=== PATIENT | female | born 1975 | race Caucasian/White ===

== ENCOUNTER → 2017-06-24 | Outpatient (CLI) | payer OTHER ==
[~2017-06-24] MED LIST: ALPR-138 PO; ALPR.25 PO; SUCR1TAB6 PO; VENTAER INH
[2017-06-24 13:22] LABS: AUTOMATED NEUTROPHIL # 2.9 TH/MM3 (1.8-7.7); BASOPHIL # 0.1 TH/MM3 (0-0.2); BASOPHIL % 1.2 % (0.0-2.0); EOSINOPHIL # 0.1 TH/MM3 (0-0.4); EOSINOPHIL % 2.3 % (0.0-4.0); HEMATOCRIT 41.3 % (35.0-46.0); HEMO FLAGS DIFF FINAL; LYMPH % 35.2 % (9.0-44.0); MEAN CELL VOLUME 95.8 FL (80.0-100.0); MEAN CORPUSCULAR HEMOGLOBIN 34.3 PG (27.0-34.0); MEAN CORPUSCULAR HGB CONC 35.8 % (32.0-36.0); MONO % 9.6 % (0.0-8.0); NEUT % 51.7 % (16.0-70.0); PLATELET COUNT 178 TH/MM3 (150-450); RED BLOOD COUNT 4.31 MIL/MM3 (4.00-5.30); RED CELL DISTRIBUTION WIDTH 12.1 % (11.6-17.2); WHITE BLOOD COUNT 5.6 TH/MM3 (4.0-11.0)
[2017-06-24 13:36] LABS: BACTERIA, URINE RARE /hpf; BLOOD, URINE NEG (NEG); COMMENT (UR) CULT NOT INDICATED; CULTURE IF INDICATED CULT NOT INDICATED; GLUCOSE,URINE NEG (NEG); KETONE, URINE NEG (NEG); MUCUS URINE FEW /lpf (OCC); NITRITE,URINE NEG (NEG); SQUAMOUS EPITHELIAL CELL URINE 1 /hpf (0-5); URINE COLOR YELLOW (YELLW/STRAW)
[2017-06-24 13:47] LABS: ANION GAP 7 MEQ/L (5-15); AST (GOT) 15 U/L (15-37); BICARBONATE 27.7 MEQ/L (21.0-32.0); BLOOD UREA NITROGEN 12 MG/DL (7-18); CHLORIDE 103 MEQ/L (98-107); GLOMERULAR FILTRATION RATE 86 ML/MIN (>89); GLUCOSE,FASTING 80 MG/DL (74-99); POTASSIUM 3.8 MEQ/L (3.5-5.1); SODIUM (NA) 138 MEQ/L (136-145)
[2017-06-24 13:48] LABS: ALT (GPT) 17 U/L (10-53)
[2017-06-24 13:58] LABS: ALKALINE PHOSPHATASE 59 U/L (45-117); TOTAL BILIRUBIN ADULT 0.5 MG/DL (0.2-1.0)
== END ==
LOC: CPRE 12:24
PROVIDERS: ATTEND Obstetrics & Gynecology
DX: Z01.812 Encounter for preprocedural laboratory examination (principal); R10.9 Unspecified abdominal pain
CPT/HCPCS: 36415; 80053; 81001; 84443; 85025

== ENCOUNTER → 2017-06-27 | Day surgery (SDC) | payer OTHER ==
[~2017-06-27] VITALS: Ht 162.6 cm; Wt 54.5 kg
[~2017-06-27] MED LIST changes: +*diphenhydrAMINE HCL 50 MG/ML VIAL PERIprocedural Use ONLY ONE; -ALPR-138 PO; +APREPITANT 40 MG CAP ONE; +CHLORHEXIDINE GLUCONATE 2 % 1 PACK (2 CLOTHS) TOPICAL PRN; +DO NOT ADM ANY ANTICOAGULANT DRUGS PRN; +FAMOTIDINE 20 MG/2 ML VIAL ONE; +LACTATED RINGER'S 1000 ML IV PRN; +METOPROLOL TARTRATE 25 MG TAB PO PRN; +MORPHINE SULFATE 8 MG/ML INJ ONE; +ONDANSETRON HCL 4 MG/2 ML VIAL IV PUSH PRN; +SODIUM CHLORID 0.9% 500 ML IV PRN; -SUCR1TAB6 PO; +oxyCODONE/ACETAMINOPHEN 5 MG/325 MG TAB PO PRN
--- NOTE | 2017-06-27 13:58 | PD.OP ---
Operative Report Preoperative Diagnosis: (1) Left lower quadrant abdominal pain of unknown etiology Postoperative Diagnosis: (1) Abdominal adhesions (2) Pelvic adhesions (3) Endometriosis determined by laparoscopy (4) Torsion of left ovary and ovarian pedicle Procedure: Diagnostic laparoscopy Left salpingo-oophorectomy Right salpingectomy Lysis of adhesions, pelvic and abdominal Biopsy of vaginal cuff Coagulation of endometriosis Surgeon: Leonard Oliver M.D. [employer] Officer(s): none Operation and Findings: Laparoscopy reveals a torsion of the left ovary and fallopian tube there was a small satellite ovary this on the pelvic sidewall the right tube and ovary were normal. The cul-de-sac and vaginal cuff had several small spots of what appeared to be endometriosis. There were adhesions of the vaginal cuff to the omentum which were taken down on the right midabdomen there was omental adhesions to the anterior abdominal wall which were taken down. The liver and gallbladder appeared normal. Counts were correct Estimated blood loss was minimal Complications were none Patient was taken to the operating theater and identified by name benefit verbally she was given a general anesthetic prepped and draped in the usual sterile fashion for laparoscopic surgery Davis catheter was inserted small umbilical incision was made and with the 5 mm trocar the trocar was introduced without difficulty and the pneumoperitoneum was created with 3 L of CO2. Second puncture was placed inferior lateral on the right with a 5 mm trocar. A third puncture was placed inferior lateral to the umbilicus on the left side with the 10 mm trocar under direct vision the left ovary wasn't visualized and using the Harmonic scalpel the infundibulopelvic ligament was taken out difficulty the ovary was then placed into an Endo Catch bag through the 10 mm incision without difficulty. At the vaginal cuff there was a small spot of what appeared to be endometriosis this was biopsied there was some adhesions of omentum to the vaginal cuff which were taken down with the Harmonic scalpel. The right tube and ovary were then inspected and found to be normal the right fallopian tube was taken down along the mesal salpinx with the Harmonic scalpel and removed the 10 mm trocar without difficulty the right ovary looked perfectly normal there was several small spots of endometriosis along the pelvic sidewalls and in the cul-de-sac and these were coagulated without difficulty. Looking up towards the liver there was some helical omental adhesions on the right these were taken down without difficulty at this point irrigation was used in the pelvis all pedicles were inspected and hemostasis was excellent we repaired the 10 mm spot with a 2-0 Vicryl or 0 Vicryl was used to close the skin incisions E laparoscope was removed under direct vision and all the air was released tolerated the procedure well and went to the recovery room in good condition Aleks Oliver MD Jun 27, 2017 13:58
[2017-06-27 15:40] VITALS: BP 118/77; PULSE 83; RESP 16; TEMP 97.6; O2SAT 98
== END | disposition home or self-care (01) ==
LOC: HSDC 09:26
PROVIDERS: ATTEND Obstetrics & Gynecology
DX: D27.1 Benign neoplasm of left ovary (principal); N83.8 Other noninflammatory disorders of ovary, fallopian tube and broad ligament; N80.9 Endometriosis, unspecified; N73.6 Female pelvic peritoneal adhesions (postinfective)
CPT/HCPCS: 00840; 57100; 58661; 86850; 86900; 86901; 88305; 88307; J1200; J2270; J7120; J8501